=== PATIENT | male | born 1965 | race Two or more races ===

== ENCOUNTER 2017-03-19 21:10 | Emergency (ER) | payer OTHER ==
[~2017-03-19] VITALS: Ht 175.3 cm; Wt 90.7 kg
[2017-03-19] MEDS ORDERED: IBUPROFEN 800 MG TAB PO ONE (23:54)
[2017-03-20] MEDS ORDERED: IBUPROFEN 800 MG TAB PO ONE
[2017-03-20 00:13] VITALS: BP 175/108
[2017-03-20] MEDS ORDERED: cloNIDine HCL 0.1 MG TAB PO ONE (00:30)
[2017-03-20] MEDS ORDERED: cloNIDine 0.2 mg/24hr 7DAY PATCH TD ONE (00:30)
== END 2017-03-20 01:51 | disposition home or self-care (01) ==
LOC: ER 21:10
DX: S43.401A Unspecified sprain of right shoulder joint, initial encounter (principal); X58.XXXA Exposure to other specified factors, initial encounter; Y93.89 Activity, other specified; Y92.89 Other specified places as the place of occurrence of the external cause; Y99.8 Other external cause status
CPT/HCPCS: 73030